=== PATIENT | male | born 1935 | race Caucasian/White ===

== ENCOUNTER 2016-10-26 11:09 | Emergency (ER) | payer OTHER ==
[~2016-10-26] VITALS: Ht 175.3 cm; Wt 104.0 kg
[~2016-10-26 11:09] MED LIST: CARV12.5 PO; CHOL1000 PO; FLUT0.0529 NAE; GLC/500 PO; GLIP5TAB11 PO; LEVO112T4 PO; LOSA1TAB PO; NAPR1TAB9 PO; OMEG10007 PO; PRLSR20 PO; TRAZ50TA35 PO; WARF5TAB90 PO
[2016-10-26 11:18] VITALS: TEMP 36.9; Ht 175.3 cm; Wt 104.0 kg
[2016-10-26 12:00] LABS: HEMATOCRIT 44.1 % (42-52); MEAN CELL VOLUME 92.5 fL (80-100); MEAN CORPUSCULAR HEMOGLOBIN 32.5 pg (25-34); MEAN CORPUSCULAR HGB CONC 35.1 g/dl (32-36); MEAN PLATELET VOLUME 10.2 fL (7.4-10.4); PLATELET COUNT 230 K/uL (130-400); RED BLOOD COUNT 4.77 M/uL (4.7-6.1); WHITE BLOOD COUNT 7.76 K/uL (4.8-10.8)
[2016-10-26 12:08] LABS: URINE APPEARANCE CLEAR (CLEAR); URINE BILIRUBIN NEG (NEG); URINE COLOR DK YELLOW; URINE NITRITE NEG (NEG); URINE PH 6.5 (4.5-7.5); URINE SPECIFIC GRAVITY 1.022 (1.000-1.030); UROBILINOGEN NEG (NEG); ZZUR CULT IF INDIC CLEAN CATCH NO
[2016-10-26 12:16] LABS: MANUAL MICROSCOPIC REQUIRED? NO; REVIEW REQ? NO
[2016-10-26 12:22] LABS: BUN/CREATININE RATIO 13.7 (10-20); CALCIUM 9.5 mg/dl (8.5-10.1); CREATININE 1.3 mg/dl (0.60-1.40); POTASSIUM 4.6 mmol/L (3.5-5.1)
[2016-10-26] MEDS ORDERED: SACC250C11 PO (12:23)
[2016-10-26] MEDS ORDERED: MULT-506 PO (12:23)
[2016-10-26 12:26] LABS: INR 2.3 (0.9-1.1)
[2016-10-26] MEDS ORDERED: MoRPHine SULFATE 4 MG/ML 1 ML CARP\\VIAL IV STA (12:34)
[2016-10-26] MEDS ORDERED: SODIUM CHLORIDE 0.9% 500ML 500 ML IV STA (12:34)
[2016-10-26] MEDS ORDERED: ONDANSETRON INJ 2 MG/ML 2 ML VIAL IV STA (12:34)
--- NOTE | 2016-10-26 12:35 | EMERGENCY ROOM VISIT NOTE ---
History Report prepared by Lina: Shawn Minor Under the Supervision of: Dr. Gonzalo Workman M.D. First contact with patient: 12:09 Chief Complaint: FLANK PAIN Stated Complaint: BACK/KIDNEY PAIN History of Present Illness The patient is an 81 year old male who presents to the Emergency Room with complaints of resolving right flank pain that started upon waking this morning. He states that as he was getting out of bed, he had a very sharp pain that was excruciating. He yelled out in pain. The patient then sat back down again and still had the pain. The sharp pain lasted for around 5 or 6 minutes. He says the pain then reduced some, and went from a "needle" pain to a "tear" pain. Currently, his pain is like a dull tooth ache. He notes that he was able to walk from the parking lot to the ER. It was painful but not excruciating. He says he takes Aleve every morning. The patient took it this morning, but the pain didn't subside so he took a second one. The patient still has his appendix , but does not have his gallbladder. The patient has no history of kidney stones. He takes Coumadin for atrial fibrillation. Source of History: patient Onset: Upon waking this morning Position: other (right flank pain) Symptom Intensity: excruciating (for 5 or 6 minutes this morning) Quality: other (went from a needle pain to a "tear" pain. Currently like a dull tooth ache) Timing: other (resolving) Note: Associated symptoms: No associated symptoms noted. Review of Systems See HPI for pertinent positives & negatives. A total of 10 systems reviewed and were otherwise negative. Past Medical & Surgical Medical Problems: (1) Anticoagulated on warfarin (2) Atrial fibrillation (3) Coronary artery disease (4) Diabetes mellitus, type II (5) Diverticular disease of colon (6) Dyslipidemia (7) GERD (gastroesophageal reflux disease) (8) History of prostate cancer (9) Hypertension Surgical Problems: (1) Status post cholecystectomy (2) Status post prostatectomy (3) Status post tonsillectomy Family History Family history omitted secondary to age. Social History Smoking Status: Former Smoker Alcohol Use: none Drug Use: none Marital Status: Housing Status: lives with significant other Current/Historical Medications Scheduled Carvedilol (Coreg), 12.5 MG PO BID Cholecalciferol (Vitamin D3), 5,000 UNITS PO DAILY Docusate Sodium (Colace), 1 CAP PO BID Fish Oil ([place]-3), 1,000 MG PO DAILY Fluticasone Propionate (Nasal) (Flonase), 2 SPRY RYAN DAILY Glipizide (Glucotrol), 5 MG PO QAM Levothyroxine Sodium (Levothyroxine Sodium), 150 MCG PO DAILY Losartan Potassium (Cozaar), 25 MG PO DAILY Metformin Hcl (Glucophage), 500 MG PO BID Multivitamin (Multivitamin), 1 TAB PO DAILY Omeprazole (Prilosec), 20 MG PO BID Saccharomyces Boulardii (Probiotic), 1 CAP PO DAILY Sennosides (Senokot), 8.6 MG PO HS Warfarin Sodium (Coumadin), 5 MG PO DAILY Scheduled PRN Naproxen (Aleve), 220 MG PO BID PRN for Pain Oxycodone/Acetaminophen 5MG/325MG (Percocet 5MG/325MG), 1-2 TAB PO Q4H PRN for Pain Allergies Coded Allergies: Fentanyl (Verified Allergy, Severe, PT HAS RECEIVED IN ED / BREATHING DIFFICULTY?, 10/26/16) Statins (Verified Allergy, Unknown, muscle cramping, 10/26/16) Physical Exam Vital Signs Date Time Temp Pulse Resp B/P Pulse Ox O2 Delivery O2 Flow Rate FiO2 10/26/16 17:32 90 18 154/96 94 10/26/16 16:32 99 18 92 Room Air 10/26/16 16:18 87 16 119/71 92 Room Air 10/26/16 14:02 81 10/26/16 13:52 83 16 159/85 95 10/26/16 13:05 91 16 132/91 96 Room Air 10/26/16 12:25 83 18 147/109 94 10/26/16 11:18 36.9 83 18 158/103 99 Room Air Physical Exam GENERAL: Patient is a healthy-appearing well-nourished HEAD: Normocephalic atraumatic EYES: Ocular movements intact pupils equal and react to light OROPHARYNX mucous membranes are moist no exudates present no erythema or edema present NECK: Supple no nuchal rigidity CHEST: Good equal expansion LUNGS: Clear and equal to auscultation CARDIAC: Normal S1 and S2 ABDOMEN: Soft nontender no guarding BACK: Mild tenderness to midline at L1. Right sided flank tenderness. No CVA tenderness. EXTREMITIES: No pain upon palpation normal muscle strength in all groups no clubbing cyanosis or edema NEURO: Patient is following commands is answering questions appropriately. Alert and oriented x3 Cranial Nerves 2-12 grossly intact. Medical Decision & Procedures ER Provider Diagnostic Interpretation: CT results as stated below per my review and radiologist interpretation: CT SCAN OF THE ABDOMEN AND PELVIS WITH IV CONTRAST CLINICAL HISTORY: Right flank pain. COMPARISON STUDY: Abdominal CT dated 04/19/2015. TECHNIQUE: Following the IV administration of 93 cc of Optiray 320, CT scan of the abdomen and pelvis is performed from the lung bases to the proximal femora. Images are reviewed in the axial, sagittal, and coronal planes. IV contrast was administered without complication. Automated dose control exposure was utilized. CT DOSE: 1038.53 mGycm FINDINGS: Lung bases: The heart is enlarged and without pericardial effusion. The coronary arteries are densely calcified. There are scattered calcified granulomas. No airspace consolidation or pleural effusion is seen. Bibasilar scarring versus atelectasis is identified. Cystic changes seen at the left lung base. Calcified hilar lymph nodes are partially visualized. Liver: The contrast-enhanced liver is normal in size, contour, and attenuation. There is no intrahepatic biliary ductal dilatation. A 2.7 cm cyst is noted in the hepatic dome. The hepatic veins and portal veins are patent. There are scattered hepatic granulomas. Gallbladder: Surgically absent noting clips in the gallbladder fossa. Spleen: Normal in size and attenuation. There are numerous calcified splenic granulomas. Pancreas: There is moderate fatty atrophy of the pancreas. Adrenal glands: Unremarkable. Kidneys: The contrast enhanced kidneys demonstrate cortical atrophy and are without hydronephrosis. The kidneys enhance symmetrically. A left renal cyst measures 2.3 cm. Additional subcentimeter cortical hypodensities also likely represents cysts but are too small for definitive characterization. Abdominal vasculature: The abdominal aorta is normal in course and caliber noting advanced atherosclerotic calcification. Bowel: The small bowel and colon are normal in course and caliber. There is moderate colonic diverticulosis without CT evidence of acute diverticulitis. Mild colonic fecal retention is observed. There is a large duodenal diverticulum. The appendix is well-visualized and normal. Peritoneum: There is no intraperitoneal free air or abdominal ascites. Lymphadenopathy: None. Pelvic viscera: The bladder is normal as visualized. The prostate gland is surgically absent. A penile prosthesis is noted. Skeletal structures: The skeletal structures are osteopenic. There is moderate lumbosacral spondylosis. No lytic or blastic lesions are seen. A bone island in the left inferior pubic ring is similar to previous. IMPRESSION: 1. There are no acute infectious or inflammatory findings in the abdomen or pelvis. 2. Moderate colonic diverticulosis without CT evidence of acute diverticulitis. 3. Cardiomegaly. 4. Additional changes as above. Electronically signed by: Caleb Ward M.D. 10/26/2016 1:08 PM Dictated Date/Time: 10/26/2016 1:00 PM Laboratory Results 10/26/16 11:47 10/26/16 11:47 Test 10/26/16 11:41 10/26/16 11:47 Urine Color DK YELLOW Urine Appearance CLEAR (CLEAR) Urine pH 6.5 (4.5-7.5) Urine Specific [place] 1.022 (1.000-1.030) Urine Protein NEG (NEG) Urine Glucose (UA) NEG (NEG) Urine Ketones TRACE (NEG) Urine Occult Blood NEG (NEG) Urine Nitrite NEG (NEG) Urine Bilirubin NEG (NEG) Urine Urobilinogen NEG (NEG) Urine Leukocyte Esterase NEG (NEG) Urine WBC (Auto) 1-5 /hpf (0-5) Urine RBC (Auto) 5-10 /hpf (0-4) Urine Hyaline Casts (Auto) 1-5 /lpf (0-5) Urine Epithelial Cells (Auto) 10-20 /lpf (0-5) Urine Bacteria (Auto) NEG (NEG) Red Blood Count 4.77 M/uL (4.7-6.1) Mean Corpuscular Volume 92.5 fL (80-100) Mean Corpuscular Hemoglobin 32.5 pg (25-34) Mean Corpuscular Hemoglobin Concent 35.1 g/dl (32-36) RDW Standard Deviation 45.9 fL (36.4-46.3) RDW Coefficient of Variation 13.6 % (11.5-14.5) Mean Platelet Volume 10.2 fL (7.4-10.4) Prothrombin Time 26.0 SECONDS (9.0-12.0) Prothromb Time International Ratio 2.3 (0.9-1.1) Anion Gap 10.0 mmol/L (3-11) Est Creatinine Clear Calc Drug Dose 53.0 ml/min Estimated GFR () 59.3 Estimated GFR (Non- 51.2 BUN/Creatinine Ratio 13.7 (10-20) Calcium Level 9.5 mg/dl (8.5-10.1) Total Bilirubin 0.8 mg/dl (0.2-1) Direct Bilirubin 0.2 mg/dl (0-0.2) Aspartate Amino Transf (AST/SGOT) 35 U/L (15-37) Alanine Aminotransferase (ALT/SGPT) 38 U/L (12-78) Alkaline Phosphatase 75 U/L (45-117) Total Protein 8.5 gm/dl (6.4-8.2) Albumin 4.6 gm/dl (3.4-5.0) Lipase 109 U/L (73-393) Labs reviewed by ED physician. Medications Administered Medications (Trade) Dose Ordered Sig/Navin Route Start Time Stop Time Status Last Admin Dose Admin Sodium Chloride (Nss 500ml) 500 ml @ 999 mls/hr Q31M STAT IV 10/26/16 12:34 10/26/16 13:04 DC 10/26/16 13:02 999 MLS/HR Morphine Sulfate (MoRPHine SULFATE INJ) 4 mg NOW STAT IV 10/26/16 12:34 10/26/16 12:35 DC 10/26/16 13:02 4 MG Ondansetron HCl (Zofran Inj) 4 mg NOW STAT IV 10/26/16 12:34 10/26/16 12:35 DC 10/26/16 13:03 4 MG Hydromorphone HCl (Dilaudid Inj) 0.5 mg NOW STAT IV 10/26/16 13:32 10/26/16 13:33 DC 10/26/16 13:54 0.5 MG ED Course 1234: Ordered Zofran Inj 4 mg IV, Morphine Sulfate Inj 4 mg IV, NSS 500 ml @ 999 mls/hr IV. 1238: Past medical records reviewed. The patient was evaluated in room C1B. A complete history and physical examination was performed. 1332: Ordered Reglan Inj 10 mg IV, Dilaudid Inj 0.5 mg IV. 1637: I reevaluated the patient and he is resting comfortably. The patient verbally expressed understanding and agreement of the treatment plan. The patient will be discharged. Medical Decision Differential diagnosis: Etiologies such as renal colic, appendicitis, diverticulitis, mesenteric ischemia, aortic pathology, infections, inflammatory bowel disease, PUD, biliary pathology, UTI, as well as others were entertained. This is an 81-year-old male who presents emergency department complaining of a tearing sensation to his right flank pain that started acutely this morning. The patient does appear to have muscle skeletal pain as the pain is worsened with movement. However because of the Giuseppe cessation of the fact that the patient is on Coumadin, an IV was established and his INR was obtained. The patient has a normal CBC normal renal profile normal liver profile normal lipase. He does have a small amount of blood in his urine. CAT scan of the abdomen and pelvis does not show any acute process. While in the emergency department the patient was given 4 mg of morphine. He was then given 0.5 mg of Dilaudid with much improvement in his symptoms. Repeat examination revealed the patient to be totally pain-free. He was ambulated and observed in the emergency department for a total of 5 hours. He also ate while he was in here. I believe that the patient is well enough to be discharged home for follow-up with his primary care physician. Patient and are in agreement with the treatment plan and were going to return if severe pain develops. Impression Primary Impression: Flank pain Scribe Attestation The scribe's documentation has been prepared under my direction and personally reviewed by me in its entirety. I confirm that the note above accurately reflects all work, treatment, procedures, and medical decision making performed by me. Departure Information Dispostion Home / Self-Care Prescriptions Docusate Sodium (COLACE) 100 Mg Cap 1 CAP PO BID for 10 Days, #20 CAP Prov: Gonzalo Workman MD 10/26/16 Sennosides (SENOKOT) 8.6 Mg Tab 8.6 MG PO HS, #10 TAB Prov: Gonzalo Workman MD 10/26/16 Oxycodone/Acetaminophen 5MG/325MG (PERCOCET 5MG/325MG) Tab 1-2 TAB PO Q4H Y for Pain, #14 TAB Prov: Gonzalo Workman MD 10/26/16 Referrals David Marie M.D. (PCP) Forms HOME CARE DOCUMENTATION FORM, IMPORTANT VISIT INFORMATION, School Instructions, Work Instructions Patient Instructions ED Back Care Tips, ED Flank Pain Uncertain Cause, Exercises Back Hip Rotator Stretch, My [facility] Additional Instructions Follow up with DR Hernadez's office for continued back pain You have been examined and treated today on an emergency basis only. This is not a substitute for, or an effort to provide, complete comprehensive medical care. It is impossible to recognize and treat all injuries or illnesses in a single emergency department visit. It is therefore important that you follow up closely with Dr Marie. Call as soon as possible for an appointment. Thank you for your time and consideration. I look forward to speaking with you again soon. Please don't hesitate to call us if you have any questions.
--- NOTE | 2016-10-26 13:10 | DIAGNOSTIC IMAGING REPORT ---
CT SCAN OF THE ABDOMEN AND PELVIS WITH IV CONTRAST CLINICAL HISTORY: Right flank pain. COMPARISON STUDY: Abdominal CT dated 04/19/2015. TECHNIQUE: Following the IV administration of 93 cc of Optiray 320, CT scan of the abdomen and pelvis is performed from the lung bases to the proximal femora. Images are reviewed in the axial, sagittal, and coronal planes. IV contrast was administered without complication. Automated dose control exposure was utilized. CT DOSE: 1038.53 mGycm FINDINGS: Lung bases: The heart is enlarged and without pericardial effusion. The coronary arteries are densely calcified. There are scattered calcified granulomas. No airspace consolidation or pleural effusion is seen. Bibasilar scarring versus atelectasis is identified. Cystic changes seen at the left lung base. Calcified hilar lymph nodes are partially visualized. Liver: The contrast-enhanced liver is normal in size, contour, and attenuation. There is no intrahepatic biliary ductal dilatation. A 2.7 cm cyst is noted in the hepatic dome. The hepatic veins and portal veins are patent. There are scattered hepatic granulomas. Gallbladder: Surgically absent noting clips in the gallbladder fossa. Spleen: Normal in size and attenuation. There are numerous calcified splenic granulomas. Pancreas: There is moderate fatty atrophy of the pancreas. Adrenal glands: Unremarkable. Kidneys: The contrast enhanced kidneys demonstrate cortical atrophy and are without hydronephrosis. The kidneys enhance symmetrically. A left renal cyst measures 2.3 cm. Additional subcentimeter cortical hypodensities also likely represents cysts but are too small for definitive characterization. Abdominal vasculature: The abdominal aorta is normal in course and caliber noting advanced atherosclerotic calcification. Bowel: The small bowel and colon are normal in course and caliber. There is moderate colonic diverticulosis without CT evidence of acute diverticulitis. Mild colonic fecal retention is observed. There is a large duodenal diverticulum. The appendix is well-visualized and normal. Peritoneum: There is no intraperitoneal free air or abdominal ascites. Lymphadenopathy: None. Pelvic viscera: The bladder is normal as visualized. The prostate gland is surgically absent. A penile prosthesis is noted. Skeletal structures: The skeletal structures are osteopenic. There is moderate lumbosacral spondylosis. No lytic or blastic lesions are seen. A bone island in the left inferior pubic ring is similar to previous. IMPRESSION: 1. There are no acute infectious or inflammatory findings in the abdomen or pelvis. 2. Moderate colonic diverticulosis without CT evidence of acute diverticulitis. 3. Cardiomegaly. 4. Additional changes as above. Electronically signed by: Caleb Ward M.D. 10/26/2016 1:08 PM Dictated Date/Time: 10/26/2016 1:00 PM
[2016-10-26] MEDS ORDERED: METOCLOPRAMIDE HCL INJ 5 MG/ML 2 ML VIAL IV STA (13:32)
[2016-10-26] MEDS ORDERED: HYDROmorphone INJ 0.5 MG/0.5 ML SYR IV STA (13:32)
[2016-10-26] MEDS ORDERED: DOCU-94 PO (16:40)
[2016-10-26] MEDS ORDERED: SENN1TAB77 PO (16:40)
[2016-10-26] MEDS ORDERED: OXYC-57 PO (16:40)
[2016-10-26 17:32] VITALS: BP 154/96; PULSE 90; O2SAT 94
== END 2016-10-26 17:34 | disposition home or self-care (01) ==
LOC: C.EDB 11:10 → C.EDC 17:34
DX: R10.30 Lower abdominal pain, unspecified (principal); I48.91 Unspecified atrial fibrillation; I10 Essential (primary) hypertension; E11.9 Type 2 diabetes mellitus without complications; E78.5 Hyperlipidemia, unspecified; I25.10 Atherosclerotic heart disease of native coronary artery without angina pectoris; K57.30 Diverticulosis of large intestine without perforation or abscess without bleeding; K21.9 Gastro-esophageal reflux disease without esophagitis; Z85.46 Personal history of malignant neoplasm of prostate; Z90.49 Acquired absence of other specified parts of digestive tract; Z98.890 Other specified postprocedural states; Z79.01 Long term (current) use of anticoagulants; Z79.84 Long term (current) use of oral hypoglycemic drugs; Z79.899 Other long term (current) drug therapy; Z87.891 Personal history of nicotine dependence; Z88.5 Allergy status to narcotic agent; Z88.8 Allergy status to other drugs, medicaments and biological substances

== ENCOUNTER → 2016-11-30 | Outpatient (CLI) | payer OTHER ==
[~2016-11-30] MED LIST changes: +MULT-506 PO; +OXYC-57 PO; +SACC250C11 PO; -TRAZ50TA35 PO
--- NOTE | 2016-11-30 13:26 | DIAGNOSTIC IMAGING REPORT ---
MRI OF THE LUMBAR SPINE WITHOUT IV CONTRAST CLINICAL HISTORY: Chronic low back pain. COMPARISON STUDY: Abdominal CT dated 10/26/2016. TECHNIQUE: MRI of the lumbar spine is performed utilizing various T1 and T2-weighted sequences in the axial and sagittal planes. IV contrast was not administered for this examination. FINDINGS: Lumbar spine: Vertebral body height is maintained throughout the lumbar spine. There is minimal retrolisthesis at L3-L4. Alignment is otherwise preserved. There is mild straightening of the lumbar lordosis. Anterior osteophytes are seen throughout. The transverse and spinous processes are intact as visualized. There is no evidence of spondylolysis. Advanced chronic degenerative endplate change/sclerosis is seen at L3-L4. Mild degenerative endplate edema is noted at L1-L2. No destructive bony lesion is suspected. Marrow signal intensity is slightly heterogeneous. Intervertebral discs: There is degenerative disc desiccation and mild loss of height seen throughout the lumbar spine. Moderate loss of height is noted at L1-L2 and severe loss of height is seen at L3-L4. Spinal cord: The visualized spinal cord is normal in morphology and signal intensity. The conus medullaris terminates at the level of L1. The nerve roots of the cauda equina are normal in morphology. These appear tethered at L3-L4. L1-L2: There is a large posterior disc osteophyte complex eccentric to the left. In conjunction with hypertrophy of the ligamentum flavum this causes moderate central canal stenosis with a minimum AP diameter of 5.5 mm. There is left-sided subarticular stenosis, with probable impingement on the exiting left L1 and the transiting left-sided nerve roots at this level. There is mild neural foraminal stenosis seen bilaterally, left greater than right. L2-L3: There is a posterior disc osteophyte complex. In conjunction with hypertrophy of the ligamentum flavum there is moderate central canal stenosis at this level with a minimum AP diameter of 5.5 mm. There is bilateral subarticular stenosis, with possible impingement on the exiting left L2 and the transiting bilateral L3 nerve roots. Facet arthropathy is of no consequence. The neural foramina are patent. L3-L4: There is a posterior disc herniation with annular fissure. In conjunction with hypertrophy of the ligamentum flavum, there is severe central canal stenosis at this level with a minimum AP diameter of 2.5 mm. There is severe bilateral subarticular stenosis with impingement on the exiting bilateral L3 and tethering of the nerve roots of the cauda equina at this level. Facet arthropathy causes mild bilateral neuroforaminal stenosis. L4-L5: There is a small posterior disc bulge. In conjunction with hypertrophy of the ligamentum flavum there is minimal acquired compromise of the central canal at this level. The minimum AP diameter measures 6.5 mm. There is mild bilateral subarticular stenosis. The neural foramina are patent. Facet arthropathy is of no consequence. Facet joint effusions are noted at this level. L5-S1: There is minimal posterior disc bulge. There is no acquired compromise of the central canal. Facet arthropathy and osteophyte formation cause mild to moderate left-sided neural foraminal stenosis. There is mild right neural foraminal narrowing. Sacrum: Visualized sacrum is normal in morphology and signal intensity. 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 Soft tissues: There is fatty atrophy of the paraspinous and psoas musculature. The partially imaged kidneys demonstrate cortical atrophy. Bilateral renal cysts are partially assessed. IMPRESSION: 1. Moderate to advanced lumbosacral spondylosis as detailed above with multilevel acquired compromise of the central canal. This is greatest at L3-L4 where a disc herniation causes severe central canal stenosis and tethering of the cauda equina. See discussion for detailed level by level analysis. 2. No destructive bony process is identified. 3. Degenerative disc disease and endplate changes as above. Dictated: 11/30/2016 11:52 AM Transcribed: 11/30/2016 1:25 PM [email or web address] Electronically signed by: Caleb Ward M.D. 11/30/2016 1:36 PM Dictated Date/Time: 11/30/2016 11:52 AM
== END | disposition home or self-care (01) ==
LOC: C.MRI 07:39
PROVIDERS: ATTEND Internal Medicine Rheumatology
DX: M47.816 Spondylosis without myelopathy or radiculopathy, lumbar region (principal); M51.36 Other intervertebral disc degeneration, lumbar region